=== PATIENT | female | born 1970 | race Caucasian/White ===

== ENCOUNTER → 2017-06-16 | Outpatient (CLI) | payer BC ==
--- NOTE | 2017-06-16 12:35 | DIAGNOSTIC IMAGING REPORT ---
MRI OF THE RIGHT SHOULDER CLINICAL HISTORY: Chronic right shoulder pain. COMPARISON STUDY: No priors. TECHNIQUE: MRI of the right shoulder was performed utilizing various T1 and T2 weighted sequences in the axial, sagittal, coronal planes. IV contrast was not administered for this examination. Note that interpretation is suboptimal without plain film correlate. FINDINGS: Rotator cuff: The supraspinatus and intraspinous tendons are preserved. The teres minor and subscapularis tendons are intact. There is no subacromial or subdeltoid bursal fluid. There is mild marrow edema and productive change at the acromioclavicular joint. Biceps tendon: The long head of the biceps tendon is normal in signal intensity and located within the bicipital groove. The anchor is maintained. Labrum: Grossly intact. Shoulder joint: There is no joint effusion. The articular cartilage over the glenoid is well maintained. Normal marrow signal intensity is preserved of the visualized osseous structures. Musculature and soft tissues: The musculature of the shoulder is normal in bulk and signal intensity. No atrophy is seen. A 1.9 cm ganglion cyst is seen in the subcoracoid space superficial to the subscapularis tendon axial image #10. IMPRESSION: 1. The rotator cuff is intact. 2. There is mild degenerative change as well as marrow edema seen at the acromioclavicular joint. Clinical correlation will be required. 3. A small ganglion cyst is noted superficial to the subscapularis tendon. Electronically signed by: Alex Caban M.D. 06/16/2017 12:33 PM Dictated Date/Time: 06/16/2017 12:26 PM
[2017-06-16 17:05] LABS: BASO % 0.8 %; BASO ABS # 0.11 K/uL (0-0.2); COMPLETE YES; EOS % 0.7 %; HEMATOCRIT 43.7 % (37-47); IG% 0.4 %; LYMPH ABS # 2.14 K/uL (1.2-3.4); MEAN CORPUSCULAR HEMOGLOBIN 32.6 pg (25-34); MEAN CORPUSCULAR HGB CONC 34.3 g/dl (32-36); MEAN PLATELET VOLUME 10.8 fL (7.4-10.4); MONO % 6.9 %; NEUT % 75.2 %; PLATELET COUNT 360 K/uL (130-400); WHITE BLOOD COUNT 13.34 K/uL (4.8-10.8)
[2017-06-16 17:14] LABS: BLOOD UREA NITROGEN 19 mg/dl (7-18); BUN/CREATININE RATIO 18.7 (10-20); CALCIUM 9.1 mg/dl (8.5-10.1); CARBON DIOXIDE 27 mmol/L (21-32); CHLORIDE 106 mmol/L (98-107); GLUCOSE 105 mg/dl (70-99); POTASSIUM 4.1 mmol/L (3.5-5.1); SODIUM 141 mmol/L (136-145)
== END | disposition home or self-care (01) ==
LOC: C.MRIBC 11:33
PROVIDERS: ATTEND Orthopaedic Surgery
DX: Z01.812 Encounter for preprocedural laboratory examination (principal); M75.41 Impingement syndrome of right shoulder; M67.411 Ganglion, right shoulder

== ENCOUNTER → 2017-07-31 | Day surgery (SDC) | payer BC ==
[2017-07-17 10:35] VITALS: Ht 160 cm; Wt 81.8 kg
[~2017-07-31] VITALS: Ht 160 cm; Wt 81.8 kg
[~2017-07-31] MED LIST: ADVIN10/60 INH; ATROPINE SULFATE 0.1 MG/ML 5ML SYR IV PRN; BUPIVACAINE/EPINEPHRINE 0.25% 1:200,000 30 ML VIAL ONE; CEFAZOLIN 2000MG IV PUSH 10 ML IV SCH; DEXAMETHASONE SOD INJ 4 MG/ML VIAL ONE; EpHEDrine SULFATE INJ 50 MG/ML AMP IV PRN; EpINEphrine INJ 1MG/ML AMP 1 MG/ML AMP ONE; FENTANYL CITRATE INJ 50 MCG/1 ML 2 ML VIAL IV PRN; FENTANYL CITRATE INJ 50 MCG/1 ML 2 ML VIAL ONE; KETOROLAC TROMETHAMINE 30 MG/ML VIAL ONE; LACTATED RINGER'S 1000ML 1,000 ML IV SCH; LIDOCAINE HCL 2% 2 ML VIAL (20MG/ML) ONE; MIDAZOLAM HCL 1 MG/ML 2ML VIAL ONE; ONDANSETRON INJ 2 MG/ML 2 ML VIAL IV PRN; ONDANSETRON INJ 2 MG/ML 2 ML VIAL ONE; OXYC-57 PO; OXYCODONE/ACETAMINOPHEN 5-325 TAB PO PRN; PROPOFOL IV EMULSION 10 MG/ML 20 ML VIAL IV ONE; SODIUM CHLORIDE 0.9% 1000ML 1,000 ML IV SCH; STAR1POW PO
--- NOTE | 2017-07-31 07:02 | History & Physical Bridge - SC ---
H&P Re-Evaluation Bridge Note: I have examined the patient, reviewed the History & Physical and in the interval since the performance of the History & Physical I have noted the following changes of clinical significance: No changes noted
--- NOTE | 2017-07-31 13:41 | Discharge Instructions-SurgCtr ---
Discharge Instructions Date of Service Jul 31, 2017. Visit Reason for Visit: Impingement Syndrome Of Shoulder Region Discharge Discharge Diagnosis / Problem: SAME ABOVE Discharge Goals Goal(s): Decrease discomfort, Improve function Activity Recommendations Activity Limitations: as noted below Lifting Limitations: gradually increase as tolerated Exercise/Sports Limitations: gradually increase as tolerated Shower/Bathe: tomorrow Anesthesia . Post Anesthesia Instructions: If you have had General Anesthesia or IV Sedation: * Do not drive today. * Resume driving when surgeon permits. * Do not make important decisions or sign legal documents today. * Call surgeon for: 1. Temperature elevations greater than 101 degrees F. 2. Uncontrollable pain. 3. Excessive bleeding. 4. Persistent nausea and vomiting. 5. Medication intolerance (nausea, vomiting or rash). * For nausea and vomiting use only clear liquids such as: tea, soda, bouillon until nausea subsides, then gradually increase diet as tolerated. * If you have any concerns or questions, call your surgeon's office. If physician is unavailable and it is an emergency, call 911 or go to the nearest emergency room. . Instructions / Follow-Up Instructions / Follow-Up MEDICATIONS: * Resume previous medications unless instructed otherwise by your surgeon. * Always take pain medication on a full stomach or with food to avoid upset stomach. * Do not drink alcohol or drive while taking narcotics. * Ibuprofen or Tylenol may be taken if narcotic not needed. SPECIAL CARE INSTRUCTIONS: __ None _X_ Keep extremity elevated and iced x 48 hours; apply ice 20-30 minutes 8-10 times/day. May remove at night. _X_ Sling (WEAR FOR COMFORT ONLY) __24 hrs/day __ Remove at night __ Shoulder Immobilizer __ 24 hrs/day __ Remove at night _X_ Dressing __ Maintain until seen in office, may shower with plastic over site _X_ Remove dressings in 24-48 hours and then may shower _X_ Cover incisions with band-aids after showering __ Do not remove steri-strips Call physician if chills or temperature rises above 102 degrees or pain unrelieved by prescribed pain medications at . . Diet Recommendations Home Diet: no limitations Fluid Restriction: None Procedures Procedures Performed: Right Shoulder Arthroscopy Subacromial Decompression Distal Clavicle Resection Pending Studies Studies pending at discharge: no Work Instructions Return To Work: after follow-up Medical Emergencies . Who to Call and When: Medical Emergencies: If at any time you feel your situation is an emergency, please call 911 immediately. . Non-Emergent Contact Non-Emergency issues call your: Primary Care Provider Call Non-Emergent contact if: you have a fever, temperature is above 101.5 . . "Provider Documentation" section prepared by Adrien Ferreira. .
--- NOTE | 2017-07-31 14:39 | Anesthesia Progress Nt - [facility] ---
Anesthesia Post Op Note Date & Time Jul 31, 2017 at 14:39 Vital Signs Pain Intensity: 0 Vital Signs Past 12 Hours Date Time Temp Pulse Resp B/P (MAP) Pulse Ox O2 Delivery O2 Flow Rate FiO2 07/31/17 14:11 36.5 77 16 118/68 (85) 97 Room Air 07/31/17 14:06 76 15 07/31/17 14:06 36.6 Room Air 07/31/17 14:06 76 15 129/82 99 07/31/17 14:01 79 13 07/31/17 14:01 79 13 99 07/31/17 14:00 107/73 07/31/17 13:56 73 9 100 07/31/17 13:56 74 9 07/31/17 13:55 111/65 07/31/17 13:52 76 7 07/31/17 13:52 76 7 98 07/31/17 13:51 74 8 07/31/17 13:51 74 8 98 07/31/17 13:50 111/68 07/31/17 13:46 78 7 98 07/31/17 13:46 78 7 07/31/17 13:45 120/74 07/31/17 13:42 113/71 07/31/17 13:42 36.8 81 16 113/71 98 Mask 6 07/31/17 12:46 80 07/31/17 12:46 80 0 96 07/31/17 12:45 118/63 07/31/17 12:43 81 96 07/31/17 12:43 81 07/31/17 12:42 124/59 96 07/31/17 12:38 85 96 07/31/17 12:38 85 07/31/17 12:28 81 07/31/17 12:28 80 0 99 07/31/17 12:27 81 07/31/17 12:27 80 10 98 07/31/17 12:26 79 10 100 07/31/17 12:26 79 07/31/17 12:25 105/57 07/31/17 12:21 84 07/31/17 12:21 83 9 99 07/31/17 12:20 114/60 07/31/17 12:16 80 07/31/17 12:16 80 10 99 07/31/17 12:15 99/58 07/31/17 12:11 82 17 99 07/31/17 12:11 82 07/31/17 12:10 107/61 07/31/17 12:06 83 07/31/17 12:06 83 7 98 07/31/17 12:05 108/53 07/31/17 12:02 86 7 98 07/31/17 12:02 86 07/31/17 12:00 96/54 07/31/17 11:57 80 07/31/17 11:57 80 14 100 07/31/17 11:55 100/63 07/31/17 11:52 74 15 100 07/31/17 11:52 74 07/31/17 11:50 128/72 07/31/17 11:50 119/71 07/31/17 11:49 70 13 119/71 (87) 100 Mask 6 07/31/17 11:47 62 07/31/17 11:47 63 14 100 07/31/17 11:42 64 98 07/31/17 11:42 64 07/31/17 11:37 67 07/31/17 11:37 66 99 07/31/17 10:37 37.0 75 16 118/80 (93) 98 Room Air Notes Mental Status: alert / awake / arousable, participated in evaluation Pt Amnestic to Procedure: Yes Nausea / Vomiting: adequately controlled Pain: adequately controlled Airway Patency, RR, SpO2: stable & adequate BP & HR: stable & adequate Hydration State: stable & adequate Anesthetic Complications: no major complications apparent Block working well in pacu
[2017-07-31 14:50] VITALS: BP 122/74; PULSE 76; O2SAT 98
--- NOTE | 2017-07-31 15:39 | [facility] Post Operative Brief Note ---
Immediate Operative Summary Operative Date Jul 31, 2017. Pre-Operative Diagnosis Impingement and AC Joint Arthritis Right Shoulder Post-Operative Diagnosis same as preop Procedure(s) Performed Right Shoulder Arthroscopy Subacromial Decompression Distal Clavicle Resection Surgeon Dr. Jacobo Education Professional Surgeon(s) CAROL Fatima Estimated Blood Loss 5ML Findings as above Specimens none per surgeon Complication(s) None Disposition Recovery Room / PACU
--- NOTE | 2017-07-31 20:12 | OPERATIVE REPORT ---
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 POSTOPERATIVE DIAGNOSIS: Same. PROCEDURE: Right shoulder diagnostic arthroscopy with limited debridement, acromioplasty, and distal clavicle resection. SURGEON: Sanjay Jacobo DO. BUSINESS RECORDS MANAGER: Adrien Ferreira PA-C, whose assistance was necessary for positioning the arm and helping with instrumentation. ANESTHESIA: Sedation with a right interscalene nerve block. COMPLICATIONS: None. CONDITION: Stable to PACU. INDICATIONS: Venecia is a pleasant 47-year-old female who has been having a 6-year history of right shoulder pain. MRI and clinical examination have been diagnostic for AC joint arthritis and external impingement of the right shoulder. After failing conservative treatment, she has elected to undergo arthroscopy. OPERATION AND FINDINGS: On 07/31/2017, she arrived at [facility] for the above procedure. She was seen in the preoperative holding area and the operative extremity was identified and signed. She was given a preoperative antibiotic and a right interscalene nerve block. She was taken back to the operating room, laid on the table in supine position and put under basic sedation. The right shoulder was then prepped and draped in sterile fashion. Time-out was done and the patient and operative extremity was properly identified. A scope was introduced in the posterior portal. Diagnostic arthroscopy showed no cartilage damage to the humeral head or the glenoid. There was a little fraying of the upper border of the subscapularis, but it was not detached. There was a little fraying of the anterior labrum. The long head of the biceps tendon was intact with a normal size biceps prosper mechanism. It did not subluxate medially. The supraspinatus, infraspinatus and teres minor were all checked and intact. An anterior portal was made. A shaver was used to do a limited debridement of the intraarticular structures. The scope was then put into the subacromial space. A lateral portal was made. A shaver was used to do a complete subacromial and subdeltoid bursectomy. An ablator was used to tease the coracoacromial ligament off the undersurface of the acromion and a 5-0 salvador was used to complete an acromioplasty of a very large Bigliani type 3 acromion. A shaver was used to remove any excess debris and attention was turned to the rotator cuff. The bursal side of the rotator cuff was examined extensively without evidence of tear. Attention was then turned to the distal clavicle. Through the anterior portal, a shaver and ablator were used to skeletonize the distal clavicle. A 5-0 salvador was then used to resect the distal 5 mm from the clavicle. Complete resection was checked under direct visualization. A shaver was used to remove any excess debris. Final diagnostic arthroscopy showed no additional pathology. Arthroscopic instruments were then removed from the shoulder. Portal sites were closed with 3-0 nylon. She was then placed in a soft dressing and a regular arm sling. She was then extubated, transferred to a litter and taken to the postanesthesia care unit in stable condition. She tolerated the procedure well. I attest to the content of the Intraoperative Record and any orders documented therein. Any exception s are noted below.
== END | disposition home or self-care (01) ==
LOC: X.SURG 10:20
PROVIDERS: ATTEND Orthopaedic Surgery
DX: M19.011 Primary osteoarthritis, right shoulder (principal); J45.909 Unspecified asthma, uncomplicated